=== PATIENT | female | born 1995 | race African-American/Black ===

== ENCOUNTER 2018-09-18 20:14 | Emergency (ER) | payer SELFPAY ==
[~2018-09-18] VITALS: Ht 175.3 cm; Wt 90.7 kg
[2018-09-18 20:52] VITALS: BP 110/70
--- NOTE | 2018-09-18 20:54 | NUR ---
TO LOBBY A/W ALEXA, AMB. CORTEZ
--- NOTE | 2018-09-18 21:00 | NUR ---
AMBULATED TO BED 6.
--- NOTE | 2018-09-18 21:03 | NUR ---
23/F PRESENTS TO ED WITH MOTHER, C/O NONPRODUCTIVE DRY COUGH, X4 DAYS. PT DENIES FEVER/CHILLS, CP, SOB, N/V. AOX4, GCS 15, RR EVEN AND UNLABORED. LUNG SOUNDS CLEAR BL. HX ASTHMA RX ALBUTEROL INHALER, NEBULIZER
[2018-09-18] MEDS ORDERED: DEXAMETHASONE 10 MG/ML VIAL IM ONE (21:10)
[2018-09-18] MEDS ORDERED: DEXAMETHASONE 10 MG/ML VIAL PO ONE (21:25)
--- NOTE | 2018-09-18 21:26 | NUR ---
PT REFUSED DECADRON IM DESPITE EDUCATION, PT STATED "I DON'T LIKE NEEDLES. DIRK GALLO MADE AWARE, 10MG DECADRON IM STAT SWITCHED TO 10MG DECADRON PO STAT PER VERBAL ORDER. PT REFUSED DECADRON PO DESPITE EDUCATION, PT STATED "I DON'T WANT IT ANYMORE." DIRK GALLO MADE AWARE.
[2018-09-18 21:30] VITALS: BP 106/69
--- NOTE | 2018-09-18 21:30 | NUR ---
Patient discharged with v/s stable. Written and verbal after care instructions given and explained. Patient alert, oriented and verbalized understanding of instructions. Ambulatory with steady gait. All questions addressed prior to discharge. ID band removed. Patient advised to follow up with PMD. Rx of PROMETHAZINE DM, PREDNISONE given. Patient educated on indication of medication including possible reaction and side effects. Opportunity to ask questions provided and answered.
== END 2018-09-18 21:30 | disposition home or self-care (01) ==
LOC: MED 20:14
DX: J45.901 Unspecified asthma with (acute) exacerbation (principal)
CPT/HCPCS: 99283; J1100